=== PATIENT | male | born 1955 | race Caucasian/White ===

== ENCOUNTER 2023-09-18 12:25 | Outpatient (CLI) | payer MEDICARE, OTHER ==
[~2023-09-18 12:25] MED LIST: Iopamidol 300 61% 100 ML VIAL FS ONE
== END 2023-09-18 12:26 | disposition home or self-care (01) ==
LOC: CSHCT 12:25
PROVIDERS: ATTEND Plastic Surgery Surgery of the Hand
DX: K66.8 Other specified disorders of peritoneum (principal); D18.03 Hemangioma of intra-abdominal structures; N28.9 Disorder of kidney and ureter, unspecified; M89.9 Disorder of bone, unspecified
CPT/HCPCS: 74170; 82565